=== PATIENT | female | born 1970 | race Caucasian/White ===

== ENCOUNTER 2021-02-03 09:43 | Emergency (ER) | payer OTHER ==
[2021-02-03 09:48] VITALS: BP 114/73; PULSE 67; TEMP 97.9; BMI 29.2
[2021-02-03] MEDS ORDERED: KETOROLAC TROMETHAMINE 15 MG/ML VIAL IM ONE (10:57)
[2021-02-03] MEDS ORDERED: METHOCARBAMOL 500 MG TABLET PO ONE (10:57)
[2021-02-03] MEDS ORDERED: KETOROLAC TROMETHAMINE 15 MG/ML VIAL ONE (11:18)
[2021-02-03] MEDS ORDERED: METHOCARBAMOL 500 MG TABLET ONE (11:18)
== END 2021-02-03 11:30 | disposition home or self-care (01) ==
LOC: JERFT 09:43
PROC: 3E023GC Introduction of Other Therapeutic Substance into Muscle, Percutaneous Approach (ICD-10-PCS; principal; 2021-02-03)
DX: S39.012A Strain of muscle, fascia and tendon of lower back, initial encounter (principal); M62.830 Muscle spasm of back; Y99.8 Other external cause status
CPT/HCPCS: 99284-25

== ENCOUNTER 2024-11-30 15:41 | Emergency (ER) | payer OTHER ==
[2024-11-30 15:46] VITALS: BP 113/67; PULSE 76; RESP 16; TEMP 98.4; BMI 26.4
== END 2024-11-30 16:11 | disposition home or self-care (01) ==
LOC: JERFT 15:41
DX: Z48.02 Encounter for removal of sutures (principal)
CPT/HCPCS: 99281-25